=== PATIENT | female | born 1985 | race Hispanic/Latino ===

== ENCOUNTER 2017-03-18 18:28 | Emergency (ER) | payer SELFPAY ==
--- NOTE | 2017-03-18 19:40 | RAD ---
THREE VIEWS OF THE LEFT WRIST 03/18/17 INDICATION: Left wrist pain and swelling. IMPRESSION: No acute fracture or subluxation is grossly evident. Carpal alignment appears within normal limits. POS: [facility]
== END 2017-03-18 20:42 | disposition home or self-care (01) ==
LOC: ERS 18:28
DX: M25.532 Pain in left wrist (principal); W20.8XXA Other cause of strike by thrown, projected or falling object, initial encounter; Y99.0 Civilian activity done for income or pay

== ENCOUNTER 2017-06-23 14:35 | Emergency (ER) | payer SELFPAY | END 2017-06-23 16:08 | disposition home or self-care (01) | LOC: ERS 14:35 | DX: J06.9 Acute upper respiratory infection, unspecified (principal); M72.2 Plantar fascial fibromatosis | CPT/HCPCS: 87081; 87430; 99283 ==

== ENCOUNTER 2017-08-04 16:00 | Emergency (ER) | payer SELFPAY ==
[2017-08-04 16:35] LABS: #Eosinphils 0.1 thou/uL (0.0-0.7); #Lymphocytes 2.1 thou/uL (1.20-3.40); #Neutrophils 5.4 thou/uL (1.40-6.50); %Basophils 0.4 % (0.0-1.0); %Eosinophils 1.2 % (0.0-10.0); %Lymphocytes 24.5 % (21.0-51.0); %Monocytes 11.3 % (0.0-10.0); %Neutrophils 62.6 % (42.0-75.0); Hemoglobin 14.8 g/dL (12.0-16.0); Mean Corpuscular HGB CONC 32.3 g/dL (32.0-36.0); Mean Corpuscular Hemoglobin 27.4 pg (27.0-31.0); Mean Platelet Volume 8.5 fL (7.4-10.4); Platelet Count 314 thou/uL (130-400); RBC Distribution Width 12.5 % (11.5-14.5); Red Blood Cell (RBC) Count 5.41 mill/uL (4.20-5.40); White Blood Cell (WBC) Count 8.6 thou/uL (4.8-10.8)
[2017-08-04] MEDS ORDERED: Acetaminophen 500 MG TAB ONE (16:50)
[2017-08-04] MEDS ORDERED: Ketorolac Tromethamine 60 MG/2 ML VIAL ONE (16:50)
== END 2017-08-04 17:10 | disposition home or self-care (01) ==
LOC: ERS 16:00
DX: N94.6 Dysmenorrhea, unspecified (principal)
CPT/HCPCS: 36415; 85025; 96372; J1885

== ENCOUNTER 2017-10-10 09:49 | Emergency (ER) | payer SELFPAY ==
[2017-10-10] MEDS ORDERED: Ketorolac Tromethamine 30 MG/ML VIAL ONE (10:57)
[2017-10-10] MEDS ORDERED: Oxymetazoline HCl 0.05% ( 15 ML ) ONE (10:57)
[2017-10-10] MEDS ORDERED: diphenhydrAMINE 25 MG CAP ONE (10:57)
[2017-10-10] MEDS ORDERED: Metoclopramide HCl 10 MG/2 ML VIAL ONE (10:57)
[2017-10-10 11:05] LABS: #Basophils 0.1 thou/uL (0.0-0.2); #Eosinphils 0.2 thou/uL (0.0-0.7); #Lymphocytes 2.2 thou/uL (1.20-3.40); #Monocytes 0.9 thou/uL (0.11-0.59); %Basophils 1.1 % (0.0-1.0); %Eosinophils 2.4 % (0.0-10.0); %Lymphocytes 29.9 % (21.0-51.0); %Monocytes 11.5 % (0.0-10.0); %Neutrophils 55.1 % (42.0-75.0); Hemoglobin 13.6 g/dL (12.0-16.0); Mean Corpuscular HGB CONC 33.3 g/dL (32.0-36.0); Mean Corpuscular Hemoglobin 28.7 pg (27.0-31.0); Mean Corpuscular Volume 86.2 fL (78.0-98.0); Mean Platelet Volume 8.2 fL (7.4-10.4); Platelet Count 288 thou/uL (130-400); RBC Distribution Width 12.8 % (11.5-14.5); Red Blood Cell (RBC) Count 4.74 mill/uL (4.20-5.40); White Blood Cell (WBC) Count 7.3 thou/uL (4.8-10.8)
[2017-10-10 11:25] LABS: ALT (SGPT) 21 U/L (8-55); AST (SGOT) 15 U/L (5-34); Albumin 3.6 g/dL (3.5-5.0); Alkaline Phosphatase 75 U/L (40-150); Anion Gap 11 mmol/L (10-20); BUN (Urea Nitrogen) 10 mg/dL (7.0-18.7); Bilirubin, Total 0.6 mg/dL (0.2-1.2); Calc. Creatinine Clearance 0 mL/min (70-130); Carbon Dioxide 23 mmol/L (22-29); Chloride 103 mmol/L (98-107); Estimated GFR-MDRD 86; Globulin 2.9 g/dL (2.4-3.5); Glucose 91 mg/dL (70-105); Potassium 3.9 mmol/L (3.5-5.1); Protein, Total 6.5 g/dL (6.0-8.3); Sodium 133 mmol/L (136-145)
[2017-10-10 11:59] LABS: Pregnancy Test - Urine (BHCG) Negative (Negative); Pregu Control Background? CLEAR/WHITE (CLR/WHITE); Pregu Control Bar Appear? YES (CONTROL BAR); Specific Gravity 1.011 (1.002-1.036)
== END 2017-10-10 13:00 | disposition home or self-care (01) ==
LOC: ERS 09:49
DX: J06.9 Acute upper respiratory infection, unspecified (principal)
CPT/HCPCS: 36415; 80053; 81025; 85025; 96365; 96375; J1885; J2765

== ENCOUNTER 2018-09-06 22:32 | Emergency (ER) | payer SELFPAY | END 2018-09-07 00:40 | LOC: ERS 22:32 | DX: Z04.1 Encounter for examination and observation following transport accident (principal); F10.129 Alcohol abuse with intoxication, unspecified | CPT/HCPCS: 99283 ==

== ENCOUNTER 2019-01-21 20:36 | Emergency (ER) | payer SELFPAY ==
--- NOTE | 2019-01-21 21:40 | RAD ---
XR Wrist 3 Lt View STANDARD History: Wrist pain Comparison: Radiograph 2017 Findings: Relative to the prior examination the bones are demineralized. Mild widening of the scaphol unate and lunotriquetral intervals. Mild degenerative disease of the scaphoid trapezium joint. No acute fracture is appreciated. Impression: Osseous demineralization of the proximal and distal carpal row with subtle scapholunate a nd lunotriquetral widening. Findings can be seen with reflex sympathetic dystrophy or reactive synovitis from inflammatory arthritis. MRI with and without contrast recommended nonemergently.
[2019-01-21 22:00] LABS: #Basophils 0.1 thou/uL (0.0-0.2); #Eosinphils 0.4 thou/uL (0.0-0.7); #Lymphocytes 2.5 thou/uL (1.20-3.40); #Monocytes 0.7 thou/uL (0.11-0.59); #Neutrophils 3.5 thou/uL (1.40-6.50); %Basophils 0.7 % (0.0-1.0); %Eosinophils 5.1 % (0.0-10.0); %Lymphocytes 34.8 % (21.0-51.0); %Monocytes 10.1 % (0.0-10.0); %Neutrophils 49.3 % (42.0-75.0); Hemoglobin 14.8 g/dL (12.0-16.0); Mean Corpuscular Hemoglobin 28.2 pg (27.0-31.0); Mean Corpuscular Volume 85.6 fL (78.0-98.0); Platelet Count 325 thou/uL (130-400); RBC Distribution Width 13.4 % (11.5-14.5); Red Blood Cell (RBC) Count 5.22 mill/uL (4.20-5.40); White Blood Cell (WBC) Count 7.1 thou/uL (4.8-10.8)
[2019-01-21 22:20] LABS: ALT (SGPT) 28 U/L (8-55); AST (SGOT) 21 U/L (5-34); Albumin 3.9 g/dL (3.5-5.0); Alkaline Phosphatase 91 U/L (40-110); Anion Gap 10 mmol/L (10-20); BUN (Urea Nitrogen) 9 mg/dL (7.0-18.7); Bilirubin, Total 0.3 mg/dL (0.2-1.2); Calc. Creatinine Clearance 0 mL/min (70-130); Calcium 9.1 mg/dL (7.8-10.44); Carbon Dioxide 29 mmol/L (22-29); Chloride 101 mmol/L (98-107); Estimated GFR-MDRD Greater than 90; Globulin 3.4 g/dL (2.4-3.5); Glucose 63 mg/dL (70-105); Potassium 3.3 mmol/L (3.5-5.1); Protein, Total 7.3 g/dL (6.0-8.3); Sodium 137 mmol/L (136-145)
== END 2019-01-21 23:47 | disposition home or self-care (01) ==
LOC: ERS 20:36
DX: H81.10 Benign paroxysmal vertigo, unspecified ear (principal); M25.532 Pain in left wrist; G89.29 Other chronic pain
CPT/HCPCS: 36415; 80053; 85025; 85652; 86140; 99284

== ENCOUNTER 2019-04-03 05:59 | Inpatient (IN) | payer SELFPAY ==
[2019-04-03] MEDS ORDERED: Ondansetron PF 4 MG/2 ML Vial ONE ×2 (06:14→12:23)
[2019-04-03] MEDS ORDERED: Morphine 4 MG/ML VIAL ONE ×2 (06:14→07:21)
[2019-04-03 06:21] LABS: Clarity Turbid (Clear); Pregnancy Test - Urine (BHCG) Negative (Negative); Pregu Control Background? CLEAR/WHITE (CLR/WHITE); Pregu Control Bar Appear? YES (CONTROL BAR)
[2019-04-03 06:22] LABS: Leukocyte Large Leu/uL (Negative); Nitrite Negative (Negative); Protein, Urine (Dipstick) > or equal to 300 mg/dL (Neg-Trace)
[2019-04-03 06:23] LABS: Glucose, Urine (Dipstick) Negative (Negative)
[2019-04-03 06:24] LABS: Bilirubin Moderate (Negative); Blood, Urine Large (Negative)
[2019-04-03 06:27] LABS: RBC/HPF Greater than 50 HPF (0-3)
[2019-04-03 06:28] LABS: Bacteria/HPF 1+ HPF (None Seen); Trichomonas/HPF None Seen HPF (None Seen); Yeast-Budding None Seen HPF (None Seen); Yeast-Hyphae None Seen HPF (None Seen)
[2019-04-03 06:40] LABS: #Basophils 0.1 thou/uL (0.0-0.2); #Eosinphils 0.1 thou/uL (0.0-0.7); #Neutrophils 6.4 thou/uL (1.40-6.50); %Basophils 0.6 % (0.0-1.0); %Eosinophils 1.1 % (0.0-10.0); %Lymphocytes 20.9 % (21.0-51.0); %Monocytes 10.1 % (0.0-10.0); %Neutrophils 67.3 % (42.0-75.0); Hemoglobin 15.1 g/dL (12.0-16.0); Mean Corpuscular HGB CONC 33.2 g/dL (32.0-36.0); Mean Corpuscular Hemoglobin 29.1 pg (27.0-31.0); Mean Corpuscular Volume 87.4 fL (78.0-98.0); Mean Platelet Volume 8.2 fL (7.4-10.4); Platelet Count 330 thou/uL (130-400); RBC Distribution Width 12.5 % (11.5-14.5); White Blood Cell (WBC) Count 9.5 thou/uL (4.8-10.8)
[2019-04-03 07:03] LABS: ALT (SGPT) 65 U/L (8-55); AST (SGOT) 57 U/L (5-34); Albumin 4.2 g/dL (3.5-5.0); Alkaline Phosphatase 94 U/L (40-110); Anion Gap 13 mmol/L (10-20); BUN (Urea Nitrogen) 10 mg/dL (7.0-18.7); Bilirubin, Total 0.6 mg/dL (0.2-1.2); Calc. Creatinine Clearance 0 mL/min (70-130); Calcium 9.9 mg/dL (7.8-10.44); Carbon Dioxide 29 mmol/L (22-29); Chloride 99 mmol/L (98-107); Estimated GFR-MDRD Greater than 90; Globulin 3.6 g/dL (2.4-3.5); Glucose 108 mg/dL (70-105); Potassium 3.6 mmol/L (3.5-5.1); Protein, Total 7.8 g/dL (6.0-8.3); Sodium 137 mmol/L (136-145)
--- NOTE | 2019-04-03 07:44 | ULT ---
ULTRASOUND PELVIC ULTRASOUND TRANSVAGINAL DOPPLER DUPLEX: DATE: 04/03/2019 HISTORY: 34-year-old female with extreme pelvic pain Dr. Garrett reported the findings suspicious for ovarian torsion by telephone with Dr. Ortiz at 7:11 A M on 04/03/2019 TECHNIQUE: Transabdominal transducer and endovaginal transducer used to visualize intrapelvic contents with wagner scale, color-flow, and spectral analysis. FINDINGS: Because of body habitus, this is a limited study. A structure with intermediate echogenicity in the right adnexa with ill-defined margins measuring esdras roximately 5 x 5 x 3 cm has no blood flow detected by Doppler. It could be an enlarged right ovary. The left ovary is not identified. The uterus measures 7.5 x 4 x 5.5 cm. Endometrial stripe is 0.2 cm. No free fluid in the cul-de-sac. IMPRESSION: Possibility of right ovarian torsion
--- NOTE | 2019-04-03 09:03 | PDOC.EVN ---
Event Note - Event Note Event Note: OBGYN Consult Patient seen at bedside at 0815, eval done. See dictation. I have ordered repeat sono for internal change assessment. We have jayjay;led the sono tech and asked to be notified of when this repaet sono is done (asked for 4 hrs from first).
--- NOTE | 2019-04-03 09:24 | HP ---
TIME OF EVALUATION: Roughly 0815 to 0835. LOCATION: ER room 3. REASON FOR EVALUATION: Abdominal pain, not otherwise specified (right-sided). The patient is seen at bedside at 0815. HISTORY OF PRESENT ILLNESS: In brief, when I started my shift at 8 in the morning, I went down to see the patient in room 3 at the request of the ER physician. This patient is a 34-year-old , G4, P3, AB1, whose LMP was 04/01/2019 and still on her cycle. She states she has a history of menstrual cramps and occasionally passes some clots. She is here because earlier this morning she had an increased amount of abdominal pain midline and slightly to the right that was not relieved with Motrin and heating pad. She has no past medical history. She has not had recent trauma. There is no vaginal discharge and no fevers. REVIEW OF SYSTEMS: Complete review of systems was checked and is otherwise negative unless specified in the HPI. PAST MEDICAL HISTORY: Negative. PAST SURGICAL HISTORY: 1. Open heart surgery for valvular repair at age 3. 2. She had "kidney surgery" as a teenager and I suspect this sounds like ureteral stents, but the patient is not real clear. MEDICATIONS: None. SOCIAL HISTORY: Occasional alcohol use, but no tobacco or illicit drug use. ALLERGIES: TO PENICILLIN, WHICH GIVES HER A RASH. OB HISTORY: She has had vaginal deliveries x3, and 1 elective AB. 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 PHYSICAL EXAMINATION: VITAL SIGNS: Her blood pressure is 132/89, temperature is 97.9, her pulse is 96, her O2 saturation is 100%, and respirations are 16 to 18 and they are not labored. GENERAL: She is in some discomfort, but nothing that looks like acute distress. ABDOMINAL: Shows a soft abdomen without peritoneal signs. There is no guarding involuntarily, but there is some voluntary guarding that is greater on the right than on the left. : Vaginal exam was deferred as she is on her cycle. IMAGING STUDIES: Ultrasound evaluated by me and I reviewed the images along with the ER physician. Uterus is about 8 cm in size and the right ovary is about 5 x 3 cm without obvious edema and there is no free fluid. Flow was not seen on the ultrasound, however, the injection mold technician said it was limited by an empty bladder and the patient's body habitus. LABORATORY ASSESSMENT: White blood cell count is 9, hematocrit value is 45, platelets are 330, AST is slightly elevated at 57 and ALT is 65. Remainder of her lab panel is normal. ASSESSMENT: This is a 34-year-old , G4, P3, AB1, who is on her menstrual cycle with an ultrasound that is not very concerning for torsion and the exam is benign. I do not see any evidence of overt adnexal mass at this time, however, this may be a progressive issue that we are seeing early on and her the first ultrasound may have limited sensitivity. I have elected to watch the patient and repeat the ultrasound for 4 hours from its first obtainment. First ultrasound was at roughly 7:00 a.m., so the second ultrasound will be anywhere from 10:30 to 11:00 a.m. to see if there is any edematous change or accumulation of free fluid. This way we can track any acute change occurring if there is an acute ischemic ovary. Clinically at this time, I do not suspect that this is the process. PLAN: 1. Observation until repeat ultrasound. 2. I have told the patient that this does not look like a surgical emergency at this time, but she will need a repeat evaluation as an outpatient. She asked about an ovarian cyst that she was told that she had now and in the past that was about 8 cm. I do not see an 8 cm measurement and suspect that the early read reflected an 8 cm uterus since the uterus is longitudinally 8 cm. This may have reflected an informal read before the formal read was done. The right adnexa again shows a normal right ovarian structure. 3. While the patient may have a component of adnexal discomfort, I do not suspect that this is related to torsion at this time. Close outpatient followup may be indicated, but again we are awaiting second ultrasound. Job ID: [id number]
[2019-04-03] MEDS ORDERED: Fentanyl 100 MCG/2 ML VIAL ONE ×3 (09:39→13:44)
--- NOTE | 2019-04-03 09:39 | PDOC.EVN ---
Event Note - Event Note Event Note: Preop note See dictation I have just called the OR and placed on next available surgery schedule this AM (to follow).
[2019-04-03] MEDS ORDERED: Lactated Ringer's 1,000 ML IV SCH (09:45)
[2019-04-03] MEDS ORDERED: Bupivacaine PF 0.5% 30 ML VIAL ONE (09:51)
[2019-04-03] MEDS ORDERED: EPINEPHrine 1 MG/ML AMP ONE (09:51)
--- NOTE | 2019-04-03 09:57 | PRG ---
DATE OF SERVICE: 04/03/2019 PREOP NOTE: In brief, I went down to the emergency room and evaluated the patient while she was undergoing her ultrasound, with Fay (the cartography technician) doing the scan with me. The cartography technician performed the ultrasound and this was transabdominal. We are now able to better see a right adnexal structure that is about 8 cm and cystic and possibly edematous. This could represent interval change from the first ultrasound. There is still no free fluid, and it is a limited flow on Doppler. Due to this more clear finding, we have elected to proceed with diagnostic/operative laparoscopy for evaluation of the right adnexa. The patient was consulted on laparoscopy with the possibility of mini-laparotomy if necessary. We have also discussed the possibility of adnexal removal/oophorectomy if necessary and the patient is aware. I have called the OR about 5 minutes ago and I have notified them of the patient's status. We are awaiting a word. Anesthesia is also being notified. I have a consent with me and we are about to give consent for diagnostic/operative laparoscopy/possible laparotomy/possible adnexal removal. Job ID: [id number]
[2019-04-03] MEDS ORDERED: Levofloxacin 500 mg/D5W 100 ml Premix Bag ONE (10:22)
[2019-04-03] MEDS ORDERED: Clindamycin/D5W 900 mg/50 ml Premix Bag ONE (10:22)
--- NOTE | 2019-04-03 10:23 | ULT ---
Ultrasound pelvis Doppler duplex: DATE: 04/03/2019 Time: 9:27 AM HISTORY: 34-year-old female with severe pelvic pain. Study was read in conjunction with Dr. Bocanegra TECHNIQUE: Transabdominal transducer used to evaluate intrapelvic contents with grayscale, color-flow, and spect ral analysis. FINDINGS: Uterus is unremarkable. There is a large right adnexal mass measuring approximately 10 x 9.5 x 7 cm. No blood flow is detecte d in this mass by Doppler. The mass has solid moderately hypoechoic parenchyma peripherally, but centrally heterogeneously hyperechoic material with strong acoustic shadowing. The findings are consi stent with right ovarian dermoid underlying acute ovarian torsion. The left ovary is now visualized and is normal in size, with blood flow demonstrated. IMPRESSION: Evidence for right ovarian dermoid complicated by acute right ovarian torsion
--- NOTE | 2019-04-03 11:01 | HP ---
ADDENDUM: TIME: 09:57. In brief, when we first did the history and physical, the patient stated that she had a "bladder surgery," but did not further elaborate. During my informed consent, the patient informed me that she had a Pfannenstiel/lower abdominal incision for this bladder repair. I had previously dictated that I suspect that she had a stent, however, this looks like she may have had a bladder suspension based on the Pfannenstiel skin incision. This is just clarification on that H and P and the patient is now being moved today's day in preparation for her operative intervention. Job ID: [id number]
[2019-04-03] MEDS ORDERED: Succinylcholine Chloride 20 MG/ML 10 ml SYRINGE FS ONE (12:23)
[2019-04-03] MEDS ORDERED: Dexamethasone 20 MG/5 ML VIAL ONE (12:23)
[2019-04-03] MEDS ORDERED: Rocuronium Bromide 10 MG/ML (10ML VIAL) ONE (12:23)
[2019-04-03] MEDS ORDERED: PROPOFOL 200 MG/20 ML VIAL ONE (12:23)
[2019-04-03] MEDS ORDERED: Glycopyrrolate 0.2 MG/ML 5 ML SYRINGE ONE (12:23)
[2019-04-03] MEDS ORDERED: Lidocaine 1% PF 5 ML VIAL ONE (12:23)
[2019-04-03] MEDS ORDERED: Ketorolac Tromethamine 60 MG/2 ML VIAL IM PRN (12:48)
[2019-04-03] MEDS ORDERED: Butorphanol Tartrate 1 MG/ML VIAL SLOW IVP PRN (12:50)
[2019-04-03] MEDS ORDERED: Promethazine HCl 25 MG/ML VIAL IM/IV PRN ×2 (12:50→13:45)
--- NOTE | 2019-04-03 13:08 | PDOC.OP ---
Operative Note - Operative Note Operative Note: Preop DX: Suspected right ovarian mass/torsion Postop: Possible dermoid 5cm, RT...no evidence torsion at surgery Procedure: Operative laparoscopy Right ovarian cystectomy Pelvic washout SEE FULL DICTATION
[2019-04-03] MEDS ORDERED: Promethazine HCl 25 MG/ML VIAL ONE (13:11)
--- NOTE | 2019-04-03 13:17 | PRG ---
DATE OF SERVICE: 04/03/2019 This is a brief postop note. In brief, I discussed with the patient's partner/significant other the details of our surgery. We discussed possible dermoid and follow up in 2 weeks. We discussed laparoscopy and the fact that ovarian tissue was left behind to preserve ovarian function on the patient's right side. We discussed that while the pathology looks benign (dermoid), final pathology could take one week or so. Questions were answered and the patient will be watched in recovery and then continue to the Gynecology raya for observation today. Job ID: [id number]
[2019-04-03] MEDS ORDERED: Meperidine HCl/PF 25 MG/ML VIAL ONE (13:33)
[2019-04-03] MEDS ORDERED: Meperidine HCl/PF 25 MG/ML VIAL IV PRN (13:45)
[2019-04-03] MEDS ORDERED: Ondansetron HCl/PF 4 MG/2 ML Vial IVP PRN (13:45)
[2019-04-03] MEDS ORDERED: Labetalol HCl 100 MG/20 ML VIAL ONE (13:52)
--- NOTE | 2019-04-03 15:07 | OP ---
DATE OF PROCEDURE: 04/03/2019 TIME OF INTERVENTION: Roughly 11 o'clock until about 12:30. LOCATION: OR room #3. PREOPERATIVE DIAGNOSIS: The patient with suspected right adnexal mass and suspected clinical torsion. POSTOPERATIVE DIAGNOSES: 1. The patient with suspected right adnexal mass and torsion. 2. No evidence of torsion seen intraoperatively. 3. Suspected right ovarian dermoid (5cm). PROCEDURES PERFORMED: 1. Operative laparoscopy with right ovarian cystectomy. 2. Diagnostic laparoscopy. 3. Pelvic irrigation/washout of the cyst debris. SURGEONS: 1. Dave Moore MD. 2. Lela Elias DO. ANESTHESIA: General. ANTIBIOTICS: None. IV FLUIDS: About 300 mL crystalloid. URINE OUTPUT: By Jang about 100 mL. ESTIMATED BLOOD LOSS: About 100 mL. COMPLICATIONS: None. COUNTS: Correct. FINDINGS: 1. Non-ischemic right adnexa 2. Normal left adnexa 3. Sebaceous material with hair at right 4. Evidence of prior Falope bands at bilateral tubes 5. Normal Uterus 6. Hemostasis after cystectomy PATHOLOGY: 1. Cyst aspirated fluid sent to cytology. 2. Cyst wall sent to pathology. DISPOSITION: To recovery room in good and stable condition. All counts were correct. DESCRIPTION OF PROCEDURE: After proper informed consent was explained to the patient in the ER and after suspecting acute torsion, she was taken to the operating room, where she was placed under general endotracheal anesthesia. Next, she was placed in the dorsal lithotomy position with Nestor stirrups, and all pressure points were adequately padded. The patient's abdomen, vulva, and vagina were all prepped and draped in the usual sterile fashion. Attention was first turned toward the patient's vagina, where a Graves bivalve speculum was used to visualize the cervix. Cervix was visualized and grasped with a single-tooth tenaculum. An intrauterine manipulator was then placed into the uterus for manipulation. Next, attention was turned to the patient's abdomen after the surgeon's cover gloves were removed. An approximately 5 to 7 mm skin incision was made in the subumbilical area. This was carried down to the fascia, and a Veress needle was then placed for CO2 insufflation. After confirming the patient's pressures under 10 mmHg, CO2 insufflation was done. We then placed the 5 mm trocar under direct visualization with the camera. We then performed two accessory ports into right and left lower quadrants to evaluate the adnexa and did not confirm torsion, the ovary was normal and nonedematous with no evidence of torsion seen. There was an approximately 5 to 6 cm cyst on the right ovary that had some sebaceous material drained from it. This fluid was sent to pathology. Because of the appearance of the fluid, we performed a cystectomy, and the cystectomy was done without incident. We did use a LigaSure to excise the capsule from the ovarian hilum. At the completion of the procedure, copious irrigation was done. To note, there was sebaceous and hairy material seen from the cyst. I suspect it was a dermoid. After copious irrigation, all CO2 gas was removed. The umbilical fascia was closed with direct observation fascial closure, and no complications were noted. The cyst wall was removed using an Endo Catch bag that was 11 mm that has been used after conversion of the umbilical port. After confirming the hemostasis secured, skin was closed with 3-0 Monocryl and Dermabond was placed over the skin incision. All counts and the patient was sent to recovery. No complications were noted. Job ID: [id number] MTDD
[2019-04-03] MEDS ORDERED: diphenhydrAMINE 50 MG/ML VIAL IM PRN (15:30)
[2019-04-03 16:20] VITALS: BMI 40.0
[2019-04-03 16:22] VITALS: TEMP 97.9
[2019-04-03 16:53] VITALS: BP 122/73
--- NOTE | 2019-04-04 07:24 | DIS ---
DATE OF ADMISSION: 04/03/2019 DATE OF DISCHARGE: 04/03/2019 PRINCIPAL DIAGNOSES: 1. Suspected adnexal torsion on the right. 2. Right adnexal mass/dermoid cyst. PRINCIPLE PROCEDURE: 1. Operative laparoscopy. 2. Gynecological ultrasound. HOSPITAL COURSE: In brief, this patient was evaluated by me earlier this morning with a suspected adnexal torsion and a cyst on the right ovary. She states that this cyst was present for about a year, but she had not had any followup since then. She now stated she had acute onset of abdominal pain and came in for evaluation. Ultrasound did not show any flow and although there was no edema around the ovary, we could not rule out torsion. The decision was made to take her for a diagnostic/operative laparoscopy and for full details, please turn to the operative report dated today. In brief, she had a right ovarian cystectomy with a dermoid cyst, but there was no evidence of torsion. The patient was evaluated for several hours after surgery and she was hemodynamically stable. I evaluated the patient at bedside in room 303 and found her to be afebrile with a blood pressure of 122/73 and pulse is anywhere from 83 to 109 highest. Clinically, she was eating when I saw her in no acute distress. Abdomen was soft and nontender without abnormal distention. Her O2 saturation was 97% to 98% on room air. As this was basically a day surgery procedure without any evidence of intraabdominal bleeding, decision was made to send her home and she will have follow up in [address] Elias's office ([facility] [place]) as she was the second surgeon on this case. She was sent home with Motrin 600 mg one p.o. q.6 hours p.r.n. pain. DISCHARGE INSTRUCTIONS: Discharge instructions were given and patient voiced understanding. Job ID: [id number]
== END 2019-04-03 18:00 | disposition home or self-care (01) | DRG 743 ==
LOC: ERS 05:59 → SDC 10:04 → 3SE 14:54
PROVIDERS: ADMIT Emergency Medicine; ATTEND Emergency Medicine
PROC: 0UB04ZZ Excision of Right Ovary, Percutaneous Endoscopic Approach (ICD-10-PCS; principal; 2019-04-03)
DX: D27.0 Benign neoplasm of right ovary (principal); N83.9 Noninflammatory disorder of ovary, fallopian tube and broad ligament, unspecified; Z88.0 Allergy status to penicillin; Z95.2 Presence of prosthetic heart valve
CPT/HCPCS: 76856; 80053; 81003; 81015; 81025; 85025; 87070; 87205; 88305; 88307; 93976; 96374; 96375; 96376; J0171; J0595; J1100; J1200; J1956; J2001; J2175; J2270; J2405; J2550; J2704; J3010; J3490; S0020

== ENCOUNTER 2019-04-05 02:19 | Emergency (ER) | payer SELFPAY ==
[2019-04-05] MEDS ORDERED: Ondansetron PF 4 MG/2 ML Vial ONE (02:34)
[2019-04-05] MEDS ORDERED: Morphine 4 MG/ML VIAL ONE ×2 (02:34→03:25)
[2019-04-05 02:54] LABS: #Basophils 0.1 thou/uL (0.0-0.2); #Lymphocytes 2.4 thou/uL (1.20-3.40); #Monocytes 0.8 thou/uL (0.11-0.59); #Neutrophils 8.4 thou/uL (1.40-6.50); %Basophils 0.4 % (0.0-1.0); %Eosinophils 0.3 % (0.0-10.0); %Lymphocytes 20.6 % (21.0-51.0); %Monocytes 6.8 % (0.0-10.0); %Neutrophils 71.9 % (42.0-75.0); Mean Corpuscular HGB CONC 34.8 g/dL (32.0-36.0); Mean Corpuscular Hemoglobin 30.8 pg (27.0-31.0); Mean Corpuscular Volume 88.3 fL (78.0-98.0); Mean Platelet Volume 8.8 fL (7.4-10.4); Platelet Count 265 thou/uL (130-400); RBC Distribution Width 12.3 % (11.5-14.5); Red Blood Cell (RBC) Count 4.57 mill/uL (4.20-5.40); White Blood Cell (WBC) Count 11.7 thou/uL (4.8-10.8)
[2019-04-05 03:13] LABS: ALT (SGPT) 31 U/L (8-55); AST (SGOT) 18 U/L (5-34); Albumin 3.8 g/dL (3.5-5.0); Alkaline Phosphatase 83 U/L (40-110); Anion Gap 13 mmol/L (10-20); BUN (Urea Nitrogen) 13 mg/dL (7.0-18.7); Bilirubin, Total 0.8 mg/dL (0.2-1.2); Calc. Creatinine Clearance 0 mL/min (70-130); Calcium 9.4 mg/dL (7.8-10.44); Carbon Dioxide 27 mmol/L (22-29); Chloride 101 mmol/L (98-107); Estimated GFR-MDRD Greater than 90; Globulin 3.3 g/dL (2.4-3.5); Glucose 92 mg/dL (70-105); Lipase 15 U/L (8-78); Potassium 3.9 mmol/L (3.5-5.1); Protein, Total 7.1 g/dL (6.0-8.3); Sodium 137 mmol/L (136-145)
[2019-04-05] MEDS ORDERED: Ketorolac Tromethamine 30 MG/ML VIAL ONE (04:16)
--- NOTE | 2019-04-05 07:38 | CT ---
PRELIMINARY REPORT/[facility]/AFTER HOURS PROCEDURE EXAM: CT Abdomen and Pelvis with Intravenous Contrast CLINICAL HISTORY: Patient presents for evaluation of abdominal pain, Patient presents for evaluation of RLQ abd pain, p t had ovarian cyst removal yesterday, now complaining of diffuse right sided and right shoulder pain TECHNIQUE: Axial computed tomography images of the abdomen and pelvis with intravenous contrast. CONTRAST: With; ISOVUE 370,100mL COMPARISON: None provided. FINDINGS: LUNG BASES: Basilar atelectasis. LIVER: Liver is enlarged measuring 20 cm in length. GALLBLADDER AND BILE DUCTS: Unremarkable. No calcified stone. No ductal dilation. PANCREAS: Unremarkable. SPLEEN: Unremarkable. ADRENAL GLANDS: Unremarkable. KIDNEYS, URETERS, AND BLADDER: Parenchymal scarring right kidney. The right kidney measures 8.8 cm in length and the left kidney measures 11.4 cm in length. There is a cyst upper pole right kidney measuring 8 mm. There is no hydronephrosis of either kidney. Bladder is grossly normal. STOMACH AND BOWEL: No obstruction. No wall thickening. No CT evidence of colitis or acute diverticuli tis. APPENDIX: Appendix is within normal limits. PERITONEUM: No free fluid. No free air. LYMPH NODES: No lymphadenopathy. REPRODUCTIVE: The uterus and adnexa are grossly normal. VASCULATURE: No aortic aneurysm. BONES: No fracture or suspicious osseous abnormality. ABDOMINAL WALL AND SOFT TISSUES: Scattered foci of air are present within the anterior abdominal and pelvic subcutaneous fat and abdominal and pelvic wall secondary to recent surgery. There is associated haziness of subcutaneous fat. IMPRESSION: Postsurgical changes. No postoperative complications appreciated. Hepatomegaly. Parenchymal scarring right kidney. ELECTRONICALLY SIGNED BY: Mirela Pelaez MD Apr 05, 2019 4:16:42 AM [employer] This report is intended for review by the ordering physician only, in accordance of law. If you recei ve this report in error, please call [facility] at [phone]. FINAL REPORT CT ABDOMEN AND PELVIS WITH CONTRAST: HISTORY: Abdominal pain. COMPARISON: Ultrasound two days prior. FINDINGS/IMPRESSION: Concordant with the preliminary report. CODE QA Transcribed Date/Time: 04/05/2019 7:50 AM
--- NOTE | 2019-04-06 10:07 | PDOC.EVN ---
Event Note - Event Note Event Note: PATH check: Mature teratoma
== END 2019-04-05 04:41 | disposition home or self-care (01) ==
LOC: ERS 02:19
DX: G89.18 Other acute postprocedural pain (principal); R10.31 Right lower quadrant pain; R10.811 Right upper quadrant abdominal tenderness
CPT/HCPCS: 74177; 80053; 83690; 85025; 96374; 96375; 96376; J1885; J2270; J2405

== ENCOUNTER 2019-05-07 08:17 | Emergency (ER) | payer BC, SELFPAY ==
[2019-05-07] MEDS ORDERED: Lidocaine 1% (PF) 30 ML VIAL ONE (08:39)
[2019-05-07] MEDS ORDERED: Bupivacaine 0.5% 10 ML VIAL ONE (08:39)
--- NOTE | 2019-05-07 08:47 | RAD ---
2 views of the right thumb: 05/07/2019 COMPARISON: None HISTORY: Smashed right thumb in a closet door FINDINGS: Mildly distracted transverse fracture noted at the tip of the first distal phalanx. No disl ocation or intra-articular extension. IMPRESSION: Fracture at the distal tip of the first distal phalanx.
[2019-05-07] MEDS ORDERED: Bacitracin 1 PK ONE (10:03)
[2019-05-07] MEDS ORDERED: CEFAZOLIN 1 GM VIAL ONE (10:06)
[2019-05-07] MEDS ORDERED: Sterile Water 10 ML ONE (10:18)
[2019-05-07] MEDS ORDERED: HYDROcodone/Acetaminophen 5/325 mg Tablet ONE (10:25)
== END 2019-05-07 10:40 | disposition home or self-care (01) ==
LOC: ERS 08:17
DX: S62.521B Displaced fracture of distal phalanx of right thumb, initial encounter for open fracture (principal); W23.0XXA Caught, crushed, jammed, or pinched between moving objects, initial encounter
CPT/HCPCS: 11760; 96372; J0690; J2001; J3490

== ENCOUNTER 2019-05-22 08:40 | Emergency (ER) | payer BC ==
[2019-05-22] MEDS ORDERED: Ketorolac Tromethamine 30 MG/ML VIAL ONE (09:35)
[2019-05-22 09:37] LABS: Bilirubin Negative (Negative); Blood, Urine Negative (Negative); Clarity Clear (Clear); Glucose, Urine (Dipstick) Normal (Negative); Leukocyte Negative Leu/uL (Negative); Nitrite Negative (Negative); Protein, Urine (Dipstick) Negative (Neg-Trace); Urobilinogen Normal mg/dL (Less than 2)
[2019-05-22 09:40] LABS: Pregnancy Test - Urine (BHCG) Negative (Negative); Pregu Control Background? CLEAR/WHITE (CLR/WHITE); Pregu Control Bar Appear? YES (CONTROL BAR)
[2019-05-22 09:41] LABS: #Eosinphils 0.2 thou/uL (0.0-0.7); #Lymphocytes 1.1 thou/uL (1.20-3.40); #Monocytes 0.6 thou/uL (0.11-0.59); #Neutrophils 7.6 thou/uL (1.40-6.50); %Basophils 0.3 % (0.0-1.0); %Eosinophils 1.8 % (0.0-10.0); %Lymphocytes 11.7 % (21.0-51.0); %Monocytes 6.7 % (0.0-10.0); %Neutrophils 79.5 % (42.0-75.0); Mean Corpuscular HGB CONC 33.3 g/dL (32.0-36.0); Mean Corpuscular Hemoglobin 29.1 pg (27.0-31.0); Mean Corpuscular Volume 87.3 fL (78.0-98.0); Mean Platelet Volume 8.9 fL (7.4-10.4); Platelet Count 285 thou/uL (130-400); Red Blood Cell (RBC) Count 4.47 mill/uL (4.20-5.40); White Blood Cell (WBC) Count 9.6 thou/uL (4.8-10.8)
[2019-05-22 09:58] LABS: ALT (SGPT) 27 U/L (8-55); AST (SGOT) 29 U/L (5-34); Albumin 3.4 g/dL (3.5-5.0); Alkaline Phosphatase 90 U/L (40-110); Anion Gap 12 mmol/L (10-20); BUN (Urea Nitrogen) 8 mg/dL (7.0-18.7); Bilirubin, Total 0.4 mg/dL (0.2-1.2); Calc. Creatinine Clearance 0 mL/min (70-130); Calcium 8.9 mg/dL (7.8-10.44); Carbon Dioxide 21 mmol/L (22-29); Chloride 106 mmol/L (98-107); Estimated GFR-MDRD Greater than 90; Globulin 3.2 g/dL (2.4-3.5); Glucose 101 mg/dL (70-105); Lipase 34 U/L (8-78); Potassium 3.9 mmol/L (3.5-5.1); Protein, Total 6.6 g/dL (6.0-8.3); Sodium 135 mmol/L (136-145)
--- NOTE | 2019-05-22 10:20 | ULT ---
ULTRASOUND ABDOMEN LIMITED: (RIGHT UPPER QUADRANT) DATE: 05/22/2019 HISTORY: 34-year-old female with right upper quadrant abdominal pain. FINDINGS: Gallbladder:Contracted around a large number of gallstones. Positive tenderness over this region. Common duct: 5 mm. Liver:Enlarged. Diffusely increased echogenicity with signal dropout in deep field: Fatty liver. Pancreas:Nonspecific sonographic appearance of head and body. Tail obscured by shadowing from bowel g as. Right kidney:No hydronephrosis IMPRESSION: 1. Positive for cholelithiasis. 2. Hepatic steatosis and hepatomegaly.
== END 2019-05-22 11:03 | disposition home or self-care (01) ==
LOC: ERS 08:40
DX: K80.20 Calculus of gallbladder without cholecystitis without obstruction (principal)
CPT/HCPCS: 76705; 80053; 81003; 81025; 83690; 85025; 96361; 96374; J1885

== ENCOUNTER 2019-09-12 22:05 | Emergency (ER) | payer BC, SELFPAY ==
--- NOTE | 2019-09-13 09:14 | RAD ---
THREE VIEWS OF THE LEFT 4TH FINGER: DATE: 09/12/2019. COMPARISON: None. HISTORY: Injury, trauma, pain. FINDINGS: There is diffuse soft tissue swelling involving the 4th finger. There is a fracture at the base of t he 4th middle phalanx anteriorly extending into the 4th proximal interphalangeal joint. This fractur e is comminuted and there is associated dorsal subluxation of the 4th proximal interphalangeal joint. In addition, there is an obliquely oriented fracture involving the dorsal base of the 4th distal ph alanx extending into the distal interphalangeal joint. There is a subtle obliquely oriented nondisplaced fracture at the base of the 4th proximal phalanx ex tending into the 4th metacarpal phalangeal joint. IMPRESSION: Multiple fractures including the base of the proximal, middle, and distal phalanx of the 4th digit as detailed above. POS: [facility]
== END 2019-09-13 00:31 ==
LOC: ERS 22:05
DX: S62.615A Displaced fracture of proximal phalanx of left ring finger, initial encounter for closed fracture (principal); S62.635A Displaced fracture of distal phalanx of left ring finger, initial encounter for closed fracture; Y04.0XXA Assault by unarmed brawl or fight, initial encounter

== ENCOUNTER 2020-05-03 14:05 | Emergency (ER) | payer BC | END 2020-05-03 16:03 | disposition left against medical advice (07) | LOC: ERS 14:05 | DX: Z53.21 Procedure and treatment not carried out due to patient leaving prior to being seen by health care provider (principal) ==

== ENCOUNTER 2020-05-15 13:59 | Emergency (ER) | payer BC ==
[2020-05-15] MEDS ORDERED: Iopamidol-370 76% 500 ML 1 ML ONE (14:10)
[2020-05-15] MEDS ORDERED: Ketorolac Tromethamine 30 MG/ML VIAL ONE (14:28)
[2020-05-15 14:40] LABS: #Basophils 0.1 thou/uL (0.0-0.2); #Eosinphils 0.1 thou/uL (0.0-0.7); #Monocytes 0.7 thou/uL (0.11-0.59); #Neutrophils 8.6 thou/uL (1.40-6.50); %Basophils 0.5 % (0.0-1.0); %Eosinophils 0.7 % (0.0-10.0); %Lymphocytes 17.6 % (21.0-51.0); %Monocytes 6.1 % (0.0-10.0); %Neutrophils 75.2 % (42.0-75.0); Hemoglobin 14.5 g/dL (12.0-16.0); Mean Corpuscular HGB CONC 32.8 g/dL (32.0-36.0); Mean Corpuscular Hemoglobin 28.4 pg (27.0-31.0); Mean Corpuscular Volume 86.5 fL (78.0-98.0); Mean Platelet Volume 8.6 fL (7.4-10.4); Platelet Count 316 thou/uL (130-400); RBC Distribution Width 11.8 % (11.5-14.5); White Blood Cell (WBC) Count 11.4 thou/uL (4.8-10.8)
[2020-05-15 14:47] LABS: BHCG - Serum Negative (NEGATIVE); Pregs Control Background? CLEAR/WHITE (CLR/WHITE); Pregs Control Bar Appear? YES (CONTROL BAR)
[2020-05-15 15:02] LABS: ALT (SGPT) 39 U/L (8-55); AST (SGOT) 41 U/L (5-34); Albumin 4.3 g/dL (3.5-5.0); Alkaline Phosphatase 93 U/L (40-110); Anion Gap 18 mmol/L (10-20); BUN (Urea Nitrogen) 10 mg/dL (7.0-18.7); Bilirubin, Total 0.6 mg/dL (0.2-1.2); Calc. Creatinine Clearance 0 mL/min (70-130); Calcium 9.6 mg/dL (7.8-10.44); Carbon Dioxide 22 mmol/L (22-29); Chloride 102 mmol/L (98-107); Globulin 3.8 g/dL (2.4-3.5); Glucose 84 mg/dL (70-105); Lipase 23 U/L (8-78); Potassium 3.9 mmol/L (3.5-5.1); Protein, Total 8.1 g/dL (6.0-8.3); Sodium 138 mmol/L (136-145)
[2020-05-15] MEDS ORDERED: diphenhydrAMINE 50 MG/ML VIAL ONE (16:47)
== END 2020-05-15 17:55 | disposition home or self-care (01) ==
LOC: ERS 13:59
DX: R07.89 Other chest pain (principal)
CPT/HCPCS: 71045; 71275; 80053; 83690; 84484; 84703; 85025; 85379; 93005; 96374; 96375; J1200; J1885; Q9967

== ENCOUNTER 2020-06-09 22:11 | Emergency (ER) | payer BC ==
--- NOTE | 2020-06-09 23:25 | RAD ---
XR Lumbar Spine 2 Or 3 View: 06/09/2020 10:54 PM INDICATION: Fall with back pain COMPARISON: June 19, 2013 FINDINGS: There is partial lumbarization of S1. Fracture: None. Alignment: Spinal alignment appears within normal limits. Degenerative Change: There is very mild multilevel disc degenerative disease of the lumbar spine. Bone Mineralization:Normal Soft tissues: Cholecystectomy clips are seen within the right upper quadrant of the abdomen. IMPRESSION: No acute fracture or subluxation. Mild lumbar spondylosis.
== END 2020-06-09 23:48 | disposition home or self-care (01) ==
LOC: ERS 22:11
DX: S39.012A Strain of muscle, fascia and tendon of lower back, initial encounter (principal); W00.0XXA Fall on same level due to ice and snow, initial encounter
CPT/HCPCS: 72100

== ENCOUNTER 2021-03-04 18:53 | Emergency (ER) | payer OTHER | END 2021-03-04 20:50 | disposition home or self-care (01) | LOC: ERS 18:53 | DX: J02.9 Acute pharyngitis, unspecified (principal); J31.0 Chronic rhinitis | CPT/HCPCS: 87081; 87430; 99284 ==

== ENCOUNTER 2021-04-11 02:42 | Emergency (ER) | payer OTHER ==
[2021-04-11] MEDS ORDERED: predniSONE 20 MG TAB ONE (04:28)
== END 2021-04-11 04:35 | disposition home or self-care (01) ==
LOC: ERS 02:42
DX: J30.9 Allergic rhinitis, unspecified (principal); J04.0 Acute laryngitis
CPT/HCPCS: 99283; J7512

== ENCOUNTER 2021-09-04 20:31 | Emergency (ER) | payer BC, SELFPAY ==
[2021-09-04] MEDS ORDERED: HYDROcodone/Acetaminophen 10/325 mg Tablet ONE (22:31)
[2021-09-04] MEDS ORDERED: Lidocaine 1% w/Epinephrine 1:100K 20 ML VIAL ONE (22:42)
[2021-09-04] MEDS ORDERED: Boostrix 0.5 ML (Tdap) VIAL ONE (22:42)
== END 2021-09-05 00:51 | disposition home or self-care (01) ==
LOC: ERS 20:31
DX: S01.112A Laceration without foreign body of left eyelid and periocular area, initial encounter (principal); N83.209 Unspecified ovarian cyst, unspecified side; Y00.XXXA Assault by blunt object, initial encounter; Z23 Encounter for immunization
CPT/HCPCS: 12011; 70450; 70486; 90471; 90715

== ENCOUNTER 2022-03-03 12:16 | Emergency (ER) | payer SELFPAY | END 2022-03-03 13:45 | disposition home or self-care (01) | LOC: ERS 12:16 | DX: R42 Dizziness and giddiness (principal) | CPT/HCPCS: 93005 ==

== ENCOUNTER 2022-08-24 15:38 | Inpatient (IN) | payer OTHER ==
[~2022-08-24 15:38] MED LIST: Iopamidol 370 76% 100 ML VIAL ONE
[2022-08-24] MEDS ORDERED: HYDROmorphone 0.5 MG/0.5 ML SYRINGE ONE (16:04)
[2022-08-24] MEDS ORDERED: Boostrix 0.5 ML (Tdap) VIAL (>/=7 yrs of age) ONE ×2 (16:43→17:05)
[2022-08-24] MEDS ORDERED: Ketorolac Tromethamine 30 MG/ML VIAL ONE (16:43)
[2022-08-24] MEDS ORDERED: Morphine 4 MG/ML VIAL ONE (17:11)
[2022-08-24] MEDS ORDERED: Lidocaine 1% w/Epinephrine 1:100K 20 ML VIAL ONE (17:11)
[2022-08-24] MEDS ORDERED: traMADol HCl 50 MG TAB PO PRN (17:16)
[2022-08-24] MEDS ORDERED: Cyclobenzaprine 10 MG TAB PO PRN (17:16)
[2022-08-24] MEDS ORDERED: Dextrose 5% in Water 1,000 ML IV PRN (17:20)
[2022-08-24] MEDS ORDERED: TETANUS, DIPHTHERIA TOX,ADULT (TDVAX) 0.5 ML VIAL IM ONE (17:20)
[2022-08-24] MEDS ORDERED: Ipratropium/Albuterol 3 ML NEB NEB PRN (17:20)
[2022-08-24] MEDS ORDERED: Dextrose 50% Abboject 50 ML SYRINGE SLOW IVP PRN (17:20)
[2022-08-24] MEDS ORDERED: Acetaminophen 325 MG TAB PO SCH (17:30)
[2022-08-24] MEDS ORDERED: Acetaminophen 500 MG TAB PO SCH (17:30)
[2022-08-24 17:37] LABS: BHCG - Serum Negative (NEGATIVE); Pregs Control Background? CLEAR/WHITE (CLR/WHITE); Pregs Control Bar Appear? YES (CONTROL BAR)
[2022-08-24 17:47] LABS: ALT (SGPT) 117 U/L (8-55); AST (SGOT) 167 U/L (5-34); Albumin 3.7 g/dL (3.5-5.0); Alkaline Phosphatase 81 U/L (40-110); Anion Gap 18 mmol/L (10-20); BUN (Urea Nitrogen) 10 mg/dL (7.0-18.7); Bilirubin, Total 0.2 mg/dL (0.2-1.2); Calc. Creatinine Clearance 0 mL/min (70-130); Calcium 8.9 mg/dL (7.8-10.44); Carbon Dioxide 16 mmol/L (22-29); Chloride 104 mmol/L (98-107); Estimated GFR 104; Globulin 3.8 g/dL (2.4-3.5); Glucose 81 mg/dL (70-105); Protein, Total 7.5 g/dL (6.0-8.3); Sodium 134 mmol/L (136-145)
[2022-08-24 18:34] LABS: #Basophils 0.1 thou/uL (0.0-0.2); #Monocytes 1.8 thou/uL (0.11-0.59); #Neutrophils 17.5 thou/uL (1.40-6.50); %Basophils 0.3 % (0.0-1.0); %Lymphocytes 9.2 % (21.0-51.0); %Monocytes 8.3 % (0.0-10.0); %Neutrophils 81.8 % (42.0-75.0); Hemoglobin 13.6 g/dL (12.0-16.0); Mean Corpuscular HGB CONC 31.9 g/dL (32.0-36.0); Mean Corpuscular Hemoglobin 26.8 pg (27.0-31.0); Mean Corpuscular Volume 84.1 fl (78.0-98.0); Platelet Count 398 10x3/uL (130-400); RBC Distribution Width 14.2 % (11.5-14.5); Red Blood Cell (RBC) Count 5.08 mill/uL (4.20-5.40); White Blood Cell (WBC) Count 21.4 10x3/uL (4.8-10.8)
[2022-08-24] MEDS ORDERED: Ondansetron PF 4 MG/2 ML Vial ONE (18:45)
[2022-08-24 20:28] VITALS: BMI 42.7
[2022-08-24] MEDS: Senokot S 8.6-50 MG TAB PO SCH (20:28)
[2022-08-24] MEDS: traMADol HCl 50 MG TAB PO SCH (20:28)
[2022-08-24] MEDS: Morphine 2 MG/ML VIAL SLOW IVP PRN (20:29)
[2022-08-24] MEDS: Famotidine/PF 20 mg/2ml Vial SLOW IVP SCH (20:29)
[2022-08-24] MEDS: Acetaminophen 500 MG TAB PO SCH (20:29)
[2022-08-24] MEDS: Gabapentin 300 MG CAP PO SCH (20:30)
[2022-08-24] MEDS: Sodium Chloride 0.9% 1,000 ML IV SCH (20:30)
[2022-08-25] MEDS: Acetaminophen 500 MG TAB PO SCH ×3 (00:08→11:43)
[2022-08-25] MEDS: traMADol HCl 50 MG TAB PO SCH ×5 (00:08→22:30)
[2022-08-25] MEDS: Morphine 2 MG/ML VIAL SLOW IVP PRN ×4 (03:24→20:00)
[2022-08-25] MEDS: Sodium Chloride 0.9% 1,000 ML IV SCH (03:28)
[2022-08-25 05:42] LABS: #Monocytes 0.8 thou/uL (0.11-0.59); #Neutrophils 5.8 thou/uL (1.40-6.50); %Basophils 0.4 % (0.0-1.0); %Eosinophils 0.4 % (0.0-10.0); %Lymphocytes 13.2 % (21.0-51.0); %Monocytes 10.2 % (0.0-10.0); %Neutrophils 75.4 % (42.0-75.0); Hemoglobin 11.9 g/dL (12.0-16.0); Mean Corpuscular HGB CONC 30.7 g/dL (32.0-36.0); Mean Corpuscular Hemoglobin 26.6 pg (27.0-31.0); Mean Corpuscular Volume 86.4 fl (78.0-98.0); Mean Platelet Volume 11.1 fL (7.4-10.4); Platelet Count 348 10x3/uL (130-400); RBC Distribution Width 14.4 % (11.5-14.5); Red Blood Cell (RBC) Count 4.48 mill/uL (4.20-5.40)
[2022-08-25 06:04] LABS: Anion Gap 12 mmol/L (10-20); BUN (Urea Nitrogen) 18 mg/dL (7.0-18.7); Calc. Creatinine Clearance 152 mL/min (70-130); Calcium 8.7 mg/dL (7.8-10.44); Carbon Dioxide 24 mmol/L (22-29); Chloride 104 mmol/L (98-107); Estimated GFR 99; Glucose 112 mg/dL (70-105); Magnesium 1.9 mg/dL (1.6-2.6); Phosphorus 3.7 mg/dL (2.3-4.7); Potassium 3.8 mmol/L (3.5-5.1); Sodium 136 mmol/L (136-145)
[2022-08-25 06:11] LABS: White Blood Cell (WBC) Count 7.7 10x3/uL (4.8-10.8)
[2022-08-25] MEDS: Famotidine/PF 20 mg/2ml Vial SLOW IVP SCH (08:08)
[2022-08-25] MEDS: Polyethylene Glycol 3350 17 GM Packet PO SCH (08:09)
[2022-08-25] MEDS: Gabapentin 300 MG CAP PO SCH ×3 (08:09→20:01)
[2022-08-25] MEDS: Senokot S 8.6-50 MG TAB PO SCH ×2 (08:09→20:01)
[2022-08-25] MEDS: Famotidine 20 MG TAB PO SCH ×2 (08:40→20:01)
[2022-08-25] MEDS ORDERED: traMADol HCl 50 MG TAB PO SCH (09:26)
[2022-08-25 10:24] LABS: Amphetamine Not Detected (NotDetected); Barbiturates Screen Not Detected (NotDetected); Benzodiazepine Screen Not Detected (NotDetected); Cocaine Metabolite Screen Detected (NotDetected); Methadone Not Detected (NotDetected); Methamphetamine Not Detected (NotDetected); Opiate Screen Detected (NotDetected); Oxycodone Screen Not Detected (NotDetected); Phencyclidine (PCP) Not Detected (NotDetected); THC/Cannabinoid Screen Detected (NotDetected); Tricyclic Screen Not Detected (NotDetected)
[2022-08-25] MEDS: Ondansetron PF 4 MG/2 ML Vial IVP PRN (10:46)
[2022-08-25 13:22] LABS: #Monocytes 0.8 thou/uL (0.11-0.59); #Neutrophils 13.7 thou/uL (1.40-6.50); %Basophils 0.2 % (0.0-1.0); %Eosinophils 0.1 % (0.0-10.0); %Lymphocytes 3.3 % (21.0-51.0); %Monocytes 5.3 % (0.0-10.0); %Neutrophils 90.7 % (42.0-75.0); Hemoglobin 11.9 g/dL (12.0-16.0); Mean Corpuscular HGB CONC 30.1 g/dL (32.0-36.0); Mean Corpuscular Hemoglobin 26.3 pg (27.0-31.0); Mean Corpuscular Volume 87.2 fl (78.0-98.0); Mean Platelet Volume 11.7 fL (7.4-10.4); RBC Distribution Width 14.5 % (11.5-14.5); Red Blood Cell (RBC) Count 4.53 mill/uL (4.20-5.40); White Blood Cell (WBC) Count 15.1 10x3/uL (4.8-10.8)
[2022-08-25 13:27] LABS: Platelet Count 244 10x3/uL (130-400)
[2022-08-25] MEDS ORDERED: Morphine 4 MG/ML VIAL SLOW IVP SCH (14:15)
[2022-08-25] MEDS: Acetaminophen/Codeine 30-300mg Tablet PO SCH ×2 (16:51→22:31)
[2022-08-25] MEDS: Acetaminophen 325 MG TAB PO SCH (18:00)
[2022-08-25] MEDS: Lactated Ringer's 1,000 ML IV SCH (18:45)
[2022-08-26] MEDS: Acetaminophen 325 MG TAB PO SCH ×4 (00:05→18:14)
[2022-08-26] MEDS: Morphine 2 MG/ML VIAL SLOW IVP PRN ×5 (00:06→21:47)
[2022-08-26] MEDS: Acetaminophen/Codeine 30-300mg Tablet PO SCH ×4 (06:58→22:01)
[2022-08-26] MEDS: traMADol HCl 50 MG TAB PO SCH ×3 (06:59→18:14)
[2022-08-26] MEDS ORDERED: diphenhydrAMINE 50 MG CAP PO SCH (08:02)
[2022-08-26] MEDS: Famotidine 20 MG TAB PO SCH ×2 (08:45→21:50)
[2022-08-26] MEDS: Gabapentin 300 MG CAP PO SCH ×3 (08:45→21:49)
[2022-08-26] MEDS: Polyethylene Glycol 3350 17 GM Packet PO SCH (08:46)
[2022-08-26] MEDS: Senokot S 8.6-50 MG TAB PO SCH ×2 (08:46→21:50)
[2022-08-26] MEDS: Lactated Ringer's 1,000 ML IV SCH ×2 (11:29→23:32)
[2022-08-26] MEDS: CEFAZOLIN 2 GM in Sodium Chloride 0.9% 100 ML IVPB SCH ×2 (15:13→21:47)
[2022-08-26] MEDS: diphenhydrAMINE 25 MG CAP PO PRN ×2 (16:54→23:32)
[2022-08-27] MEDS: traMADol HCl 50 MG TAB PO SCH ×4 (00:55→17:29)
[2022-08-27] MEDS: Acetaminophen 325 MG TAB PO SCH ×4 (00:55→17:31)
[2022-08-27] MEDS: Acetaminophen/Codeine 30-300mg Tablet PO SCH ×4 (03:02→21:53)
[2022-08-27] MEDS: Morphine 2 MG/ML VIAL SLOW IVP PRN ×5 (03:03→19:36)
[2022-08-27] MEDS: CEFAZOLIN 2 GM in Sodium Chloride 0.9% 100 ML IVPB SCH (05:26)
[2022-08-27 05:37] LABS: #Basophils 0.1 thou/uL (0.0-0.2); #Eosinphils 0.3 thou/uL (0.0-0.7); #Monocytes 2.4 thou/uL (0.11-0.59); #Neutrophils 11.9 thou/uL (1.40-6.50); %Basophils 0.5 % (0.0-1.0); %Eosinophils 1.6 % (0.0-10.0); %Lymphocytes 11.4 % (21.0-51.0); %Monocytes 14.5 % (0.0-10.0); %Neutrophils 71.4 % (42.0-75.0); Hemoglobin 11.2 g/dL (12.0-16.0); Mean Corpuscular Hemoglobin 26.2 pg (27.0-31.0); Mean Corpuscular Volume 93.7 fl (78.0-98.0); Mean Platelet Volume 11.5 fL (7.4-10.4); Platelet Count 207 10x3/uL (130-400); RBC Distribution Width 14.6 % (11.5-14.5); Red Blood Cell (RBC) Count 4.27 mill/uL (4.20-5.40); White Blood Cell (WBC) Count 16.6 10x3/uL (4.8-10.8)
[2022-08-27 06:14] LABS: Hypochromia SLIGHT = 6-15 cells (100X) (0-5/hpf)
[2022-08-27 06:15] LABS: Platelet Morphology Comment Platelets Normal; Polychromasia SLIGHT = 2-3 cells (100X) (0-2/hpf)
[2022-08-27] MEDS: Gabapentin 300 MG CAP PO SCH ×3 (08:52→21:55)
[2022-08-27] MEDS: Senokot S 8.6-50 MG TAB PO SCH ×2 (09:03→21:55)
[2022-08-27] MEDS: Polyethylene Glycol 3350 17 GM Packet PO SCH (09:03)
[2022-08-27] MEDS: Famotidine 20 MG TAB PO SCH ×2 (09:03→21:55)
[2022-08-27] MEDS: tiZANidine HCl 4 MG TAB PO PRN (09:07)
[2022-08-27] MEDS: Cefepime 2 GM in Sodium Chloride 0.9% 100 ML IVPB SCH ×2 (09:07→21:52)
[2022-08-27] MEDS ORDERED: Lidocaine 4% Topical Sol 50 ML BOT TOP PRN (09:21)
[2022-08-27] MEDS ORDERED: Iopamidol-370 76% 500 ML MDV (1 ML CHARGE) ONE (11:27)
[2022-08-27] MEDS: Vancomycin 1.5 GRAM/300 ML BAG 1.5 GM in Premix Bag 1 BAG IVPB SCH (14:54)
[2022-08-27 15:26] LABS: #Eosinphils 0.2 thou/uL (0.0-0.7); #Monocytes 0.7 thou/uL (0.11-0.59); #Neutrophils 9.5 thou/uL (1.40-6.50); %Basophils 0.2 % (0.0-1.0); %Eosinophils 1.9 % (0.0-10.0); %Lymphocytes 10.4 % (21.0-51.0); %Monocytes 5.6 % (0.0-10.0); %Neutrophils 81.4 % (42.0-75.0); Hemoglobin 11.3 g/dL (12.0-16.0); Mean Corpuscular HGB CONC 30.3 g/dL (32.0-36.0); Mean Corpuscular Hemoglobin 26.6 pg (27.0-31.0); Mean Platelet Volume 11.3 fL (7.4-10.4); Platelet Count 261 10x3/uL (130-400); RBC Distribution Width 14.2 % (11.5-14.5); Red Blood Cell (RBC) Count 4.25 mill/uL (4.20-5.40); White Blood Cell (WBC) Count 11.7 10x3/uL (4.8-10.8)
[2022-08-27 15:29] LABS: Mean Corpuscular Volume 87.8 fl (78.0-98.0)
[2022-08-27 16:25] LABS: Bacteria/HPF None Seen HPF (None Seen); Bilirubin Negative (Negative); Blood, Urine Negative (Negative); CAUTI Indications for Culture Dysuria,urgency,freq; Clarity Clear (Clear); Glucose, Urine (Dipstick) Normal (Negative); Ketone, Urine Negative (Negative); Leukocyte 25 Leu/uL (Negative); Nitrite Negative (Negative); Protein, Urine (Dipstick) 100 mg/dL (Neg-Trace); RBC/HPF None Seen HPF (0-3); Urobilinogen Normal mg/dL (Less than 2)
[2022-08-27 16:26] LABS: Specific Gravity, Urine Greater than 1.060 (1.002-1.036)
[2022-08-27 16:28] LABS: Urine Culture Reflex No No
[2022-08-27] MEDS: diphenhydrAMINE 25 MG CAP PO PRN (22:06)
[2022-08-28] MEDS: Morphine 2 MG/ML VIAL SLOW IVP PRN ×2 (00:37→06:12)
[2022-08-28] MEDS: Acetaminophen 325 MG TAB PO SCH ×4 (00:38→19:30)
[2022-08-28] MEDS: traMADol HCl 50 MG TAB PO SCH ×4 (00:39→19:30)
[2022-08-28 03:33] LABS: Phosphorus 3.8 mg/dL (2.3-4.7)
[2022-08-28] MEDS: Vancomycin 1.5 GRAM/300 ML BAG 1.5 GM in Premix Bag 1 BAG IVPB SCH (04:20)
[2022-08-28] MEDS: Acetaminophen/Codeine 30-300mg Tablet PO SCH ×4 (05:21→21:42)
[2022-08-28] MEDS: Sulfameth/Trimethoprim DS 800-160mg TAB PO SCH ×2 (08:57→21:43)
[2022-08-28] MEDS: Famotidine 20 MG TAB PO SCH ×2 (08:57→21:44)
[2022-08-28] MEDS: Senokot S 8.6-50 MG TAB PO SCH ×2 (08:57→21:44)
[2022-08-28] MEDS: Gabapentin 300 MG CAP PO SCH ×3 (08:57→21:43)
[2022-08-28] MEDS: tiZANidine HCl 4 MG TAB PO PRN ×2 (08:57→16:33)
[2022-08-28] MEDS: Polyethylene Glycol 3350 17 GM Packet PO SCH (08:59)
[2022-08-28] MEDS: Lidocaine 4% Topical Sol 50 ML BOT TOP SCH (09:07)
[2022-08-28] MEDS: Ondansetron PF 4 MG/2 ML Vial IVP PRN (10:30)
[2022-08-28 16:31] LABS: #Eosinphils 0.3 thou/uL (0.0-0.7); #Monocytes 0.6 thou/uL (0.11-0.59); #Neutrophils 4.2 thou/uL (1.40-6.50); %Basophils 0.3 % (0.0-1.0); %Eosinophils 4.2 % (0.0-10.0); %Lymphocytes 15.3 % (21.0-51.0); %Monocytes 9.4 % (0.0-10.0); %Neutrophils 70.1 % (42.0-75.0); Hemoglobin 10.6 g/dL (12.0-16.0); Mean Corpuscular HGB CONC 30.9 g/dL (32.0-36.0); Mean Corpuscular Hemoglobin 26.7 pg (27.0-31.0); Mean Corpuscular Volume 86.4 fl (78.0-98.0); Mean Platelet Volume 11.2 fL (7.4-10.4); Platelet Count 283 10x3/uL (130-400); Red Blood Cell (RBC) Count 3.97 mill/uL (4.20-5.40); White Blood Cell (WBC) Count 5.9 10x3/uL (4.8-10.8)
[2022-08-28 17:11] LABS: Troponin I Less than 0.010 ng/mL (< 0.028)
[2022-08-29] MEDS: traMADol HCl 50 MG TAB PO SCH ×2 (00:35→06:45)
[2022-08-29] MEDS: Acetaminophen 325 MG TAB PO SCH ×3 (00:35→12:17)
[2022-08-29] MEDS: Acetaminophen/Codeine 30-300mg Tablet PO SCH ×2 (04:37→10:43)
[2022-08-29 05:51] LABS: #Eosinphils 0.3 thou/uL (0.0-0.7); #Monocytes 0.8 thou/uL (0.11-0.59); #Neutrophils 4.4 thou/uL (1.40-6.50); %Basophils 0.4 % (0.0-1.0); %Eosinophils 4.2 % (0.0-10.0); %Monocytes 11.3 % (0.0-10.0); %Neutrophils 65.1 % (42.0-75.0); Mean Corpuscular HGB CONC 30.3 g/dL (32.0-36.0); Mean Corpuscular Hemoglobin 25.7 pg (27.0-31.0); Mean Corpuscular Volume 84.8 fl (78.0-98.0); Mean Platelet Volume 10.9 fL (7.4-10.4); Platelet Count 323 10x3/uL (130-400); Red Blood Cell (RBC) Count 4.28 mill/uL (4.20-5.40); White Blood Cell (WBC) Count 6.7 10x3/uL (4.8-10.8)
[2022-08-29] MEDS: Gabapentin 300 MG CAP PO SCH (08:37)
[2022-08-29] MEDS: Famotidine 20 MG TAB PO SCH (08:37)
[2022-08-29] MEDS: Polyethylene Glycol 3350 17 GM Packet PO SCH (08:46)
[2022-08-29] MEDS: Senokot S 8.6-50 MG TAB PO SCH (08:46)
[2022-08-29] MEDS: Lidocaine 4% Topical Sol 50 ML BOT TOP SCH (08:46)
[2022-08-29] MEDS ORDERED: Sulfameth/Trimethoprim DS 800-160mg TAB PO SCH (09:00)
[2022-08-29] MEDS ORDERED: traMADol HCl 50 MG TAB PO SCH (09:00)
[2022-08-29 11:26] VITALS: BP 118/63; TEMP 98.4
[2022-08-29] MEDS: tiZANidine HCl 4 MG TAB PO PRN (12:17)
== END 2022-08-29 13:22 | disposition home or self-care (01) | DRG 964 ==
LOC: ERS 15:38 → SURG A 17:20
PROVIDERS: ADMIT Surgery; ATTEND Surgery
PROC: 0HQCXZZ Repair Left Upper Arm Skin, External Approach (ICD-10-PCS; principal; 2022-08-24)
DX: S22.079A Unspecified fracture of T9-T10 vertebra, initial encounter for closed fracture (principal); S36.115A Moderate laceration of liver, initial encounter; J98.11 Atelectasis; S27.321A Contusion of lung, unilateral, initial encounter; S22.42XA Multiple fractures of ribs, left side, initial encounter for closed fracture; L03.114 Cellulitis of left upper limb; Z68.41 Body mass index [BMI] 40.0-44.9, adult; S41.112A Laceration without foreign body of left upper arm, initial encounter; E66.01 Morbid (severe) obesity due to excess calories; S42.002A Fracture of unspecified part of left clavicle, initial encounter for closed fracture; Z98.890 Other specified postprocedural states; V28.59XA Other motorcycle passenger injured in noncollision transport accident in traffic accident, initial encounter; Y92.410 Unspecified street and highway as the place of occurrence of the external cause; Z88.0 Allergy status to penicillin; Z88.8 Allergy status to other drugs, medicaments and biological substances; Z87.442 Personal history of urinary calculi
CPT/HCPCS: 36415; 70450; 71045; 71260; 72125; 72170; 74177; 80048; 80053; 80306; 81001; 83735; 84100; 84484; 84703; 85025; 86850; 86900; 86901; 87040; 90715; 93005; 93010; 97139; G0390; J0692; J1170; J1650; J1885; J2270; J2272; J2405; J3370; J3490; J7050; J7120; Q9967; S0028

== ENCOUNTER 2022-10-25 12:30 | Outpatient (CLI) | payer OTHER | END 2022-10-25 12:31 | disposition home or self-care (01) | LOC: BICCT 12:30 | PROVIDERS: ATTEND Neurological Surgery | DX: S22.079S Unspecified fracture of T9-T10 vertebra, sequela (principal) | CPT/HCPCS: 72128 ==

== ENCOUNTER 2023-01-22 16:55 | Emergency (ER) | payer OTHER | END 2023-01-22 17:45 | disposition left against medical advice (07) | LOC: ERS 16:55 | DX: Z53.21 Procedure and treatment not carried out due to patient leaving prior to being seen by health care provider (principal) ==

== ENCOUNTER 2024-06-05 21:30 | Emergency (ER) | payer OTHER | END 2024-06-05 22:59 | disposition left against medical advice (07) | LOC: ERS 21:30 | DX: Z53.29 Procedure and treatment not carried out because of patient's decision for other reasons (principal) | CPT/HCPCS: 87428 ==

== ENCOUNTER 2024-11-29 14:41 | Emergency (ER) | payer OTHER ==
[2024-11-29 15:13] LABS: #Basophils 0.03 10x3/uL (0.0-0.2); #Eosinophils 0.14 10x3/uL (0.0-0.7); #Monocytes 0.48 10x3/uL (0.11-0.59); #Neutrophils 3.93 10x3/uL (1.40-6.50); %Basophils 0.5 % (0.0-1.0); %Eosinophils 2.3 % (0.0-10.0); %Lymphocytes 25.4 % (21.0-51.0); %Monocytes 7.8 % (0.0-10.0); %Neutrophils 63.8 % (42.0-75.0); Hematocrit 39.7 % (36.0-47.0); Hemoglobin 12.8 g/dL (12.0-16.0); Mean Corpuscular Hemoglobin 26.7 pg (27.0-31.0); Mean Corpuscular Volume 82.9 fL (78.0-98.0); Platelet Count 293 10x3/uL (130-400); Red Blood Cell (RBC) Count 4.79 mill/uL (4.20-5.40); White Blood Cell (WBC) Count 6.15 10x3/uL (4.8-10.8)
[2024-11-29] MEDS ORDERED: Ondansetron PF 4 MG/2 ML Vial ONE (15:19)
[2024-11-29 15:35] LABS: ALT (SGPT) 11 U/L (Less than 34); AST (SGOT) 27 U/L (11-34); Albumin 3.3 g/dL (3.1-4.5); Alkaline Phosphatase 79 U/L (40-110); Anion Gap 15 mmol/L (10-20); BUN (Urea Nitrogen) 9 mg/dL (7.0-18.7); Bilirubin, Total 0.4 mg/dL (0.3-1.2); Calc. Creatinine Clearance 0 mL/min (70-130); Calcium 8.7 mg/dL (7.8-10.44); Carbon Dioxide 22 mmol/L (22-29); Chloride 103 mmol/L (98-107); Globulin 3.3 g/dL (2.4-3.5); Glucose 96 mg/dL (70-105); Potassium 3.5 mmol/L (3.5-5.1); Sodium 136 mmol/L (136-145)
[2024-11-29] MEDS ORDERED: Ketorolac Tromethamine 30 MG (1 mL) VIAL ONE (16:16)
[2024-11-29] MEDS ORDERED: Acetaminophen 500 MG TAB ONE (16:41)
== END 2024-11-29 16:43 | disposition home or self-care (01) ==
LOC: ERS 14:41
DX: R07.9 Chest pain, unspecified (principal)
CPT/HCPCS: 71045; 80053; 84484; 85025; 93005; 96374; J1885; J2405

== ENCOUNTER 2025-02-26 10:49 | Outpatient (CLI) | payer OTHER | END 2025-02-26 10:50 | disposition home or self-care (01) | LOC: BICRAD 10:49 | PROVIDERS: ATTEND Nurse Practitioner Family | DX: M25.562 Pain in left knee (principal) ==